=== PATIENT | female | born 1945 | race African-American/Black ===

== ENCOUNTER 2017-02-12 09:35 | Inpatient (IN) | payer MEDICARE, BC, OTHER ==
--- NOTE | ~2017-02-12 | OR ---
Unit #: [id number] #: [id number] Patient: MELLY RICE [id number] [address] [place], [place] [address] [id number] I MR#: [id number] NAME: MELLY RICE ROOM: 229 Date of Procedure: 02/21/2017 Admission Date: 02/13/2017 Surgeon: Phu England Jr., M.D. : 1945 Attending Physician: Shruthi Christensen M.D. Primary Care Physician: Benji Becker M.D. OPERATIVE REPORT INDICATIONS FOR PROCEDURE The patient is a 71-year-old black female with multiple medical problems including chronic renal failure, who has developed calciphylaxis, wounds of both thighs. She was previously debrided and needs further debridement and said she was on Plavix. Further debridements have been held until now. Her Plavix has been held since the admission. She is brought to the operating room at this time for extensive debridement of both thighs. PREOPERATIVE DIAGNOSIS Wounds of both thighs related to calciphylaxis. POSTOPERATIVE DIAGNOSES Wounds of both thighs related to calciphylaxis, noting large wounds with extension of the calciphylaxis well beyond the edge of the open wound on the right side from before. ANESTHESIA General with LMA. PROCEDURE PERFORMED Sharp excisional debridement of both wounds of the right thigh as well as a large wound of the left thigh with a #10 blade scalpel down to the deeper subcutaneous tissue and the fascia of the muscle. DESCRIPTION OF PROCEDURE The patient was positioned in the supine position with the right leg rotated internally and circumferential incisions with #10 blade scalpel made through the skin beyond the area of calciphylaxis down to the deeper subcutaneous tissue and down towards the fascia of the muscle. After all the necrotic tissue was removed from both wounds, some necrotic fat was removed with a curette and curettaged, and after bleeding was stopped with Bovie cautery, the wounds were packed with saline moist dry dressings. The patient was then rotated with the left side up and incision was made around the necrotic tissue on the left thigh laterally with #10 blade scalpel and sharp excisional debridement was performed down to the fascia of the muscle. After all necrotic tissue was removed, some additional necrotic fat was curettaged and removed, and once all tissue was removed back to viable areas, hemostasis was achieved with Bovie cautery. The wound was irrigated and then packed open with saline moist dry dressings. Sterile dressings were applied externally. Estimated blood loss for both surgeries less than 100 mL. The patient received less than 1000 mL crystalloid solution during the procedure. Sponges and instrument counts Unit #: [id number] #: [id number] Patient: MELLY RICE were correct x3. No drains were used. No complications. The patient was taken to recovery room with stable vital signs in satisfactory condition. Dictated by... Phu England Jr. MJose A. ALFONZO/pierre TD: 02/21/2017 23:46 JOB #: [id number] OPERATIVE REPORT Page 1 of 1 X Phu England MD X PROCEDURE OPERATIVE NOTE
--- NOTE | ~2017-02-12 | DS ---
Unit #: [id number] #: [id number] Patient: MELLY RICE [id number] [address] [place], [place] [address] [id number] I MR#: [id number] NAME: MELLY RICE. ROOM: 229 Age: 71 Sex: F Admission Date: 02/13/2017 : 1945 Discharge Date: 02/24/2017 Attending Physician: Shruthi Christensen M.D. Primary Care Physician: Benji Becker M.D. DISCHARGE SUMMARY ADDENDUM HOSPITAL COURSE (CONTINUED) Patient underwent sharp excisional debridement of both wounds of the right thigh and large wound of the left thigh down to the deeper subcutaneous tissue and fascia. Postoperatively, she has done very well. I will note, the pathology from this procedure revealed focal ulceration but no blood vessel wall calcifications were noted indicating this may not be consistent with calcification. At this point, the wounds have not yet begun to granulate. The plan is for patient to achieve approximately 20-30% granulation tissue and at that point will discuss wound V.A.C. application at that time. Patient has otherwise remained on hemodialysis without complication. She will be discharged back to her nursing facility today. DISCHARGE CONDITION Stable. DISCHARGE STATUS [facility] DISCHARGE MEDICATIONS 1. Zofran oral disintegrating tablet 4 mg p.o. t.i.d. p.r.n. for nausea or vomiting. 2. Zyvox 600 mg p.o. b.i.d. to stop after dose on February 27, 2017. 3. Gabapentin 300 mg at bedtime. 4. Amitriptyline 25 mg at bedtime. 5. Desyrel 25 mg p.o. q.6 hours p.r.n. for anxiety. 6. Lidoderm patch 5% applied topically daily for 12 hours and then removed for 12 hours. 7. ProMod 60 mg p.o. b.i.d. 8. Metoprolol succinate 100 mg daily. 9. Bisacodyl 5 mg p.o. p.r.n. if no bowel movement in two days. 10. Dulcolax 10 mg FL p.r.n. if no bowel movement in four days. 11. Colace 100 mg b.i.d. 12. Docusate plus benzocaine enema 1 suppository FL p.r.n. if no bowel movement in four days. 13. MiraLax 17 grams p.o. daily. 14. Bumex 1 mg b.i.d. 15. Procrit weekly with dialysis. 16. Lipitor 20 mg at bedtime. 17. Clonidine 0.2 mg b.i.d. 18. Hydralazine 100 mg b.i.d. Unit #: [id number] #: [id number] Patient: MELLY RICE 19. Cozaar 50 mg twice daily. 20. Flagyl 500 mg p.o. t.i.d. to stop after dose on February 28, 2017. 21. Famotidine 20 mg daily. 22. Aspirin 81 mg daily. 23. [place] 5/325 at 1 tablet p.o. q.8 hours. 24. Plavix 75 mg daily. 25. Vitamin D3 at 5000 units p.o. daily. 26. Vitamin B12 at 1000 mcg p.o. daily. 27. Dakin's quarter strength solution for wound care as outlined below. DISCHARGE INSTRUCTIONS 1. Patient was instructed to follow a regular diet. 2. She can increase her activity as tolerated, but again, she is essentially immobile at baseline. 3. In regards to wound care, patient should have Dakin's quarter strength solution apply wet-to-dry dressings to all wounds on thighs bilaterally q.8 hours. 4. Patient will continue hemodialysis as previously scheduled on Friday/Friday/Friday. FOLLOWUP Patient will follow up with Dr. England in two weeks. He will reevaluate the wounds in his office to determine whether wound V.A.C. is needed. Time spent on discharge 33 minutes. Dictated by... Reema Babcock/stefanie TD: 02/24/2017 16:05 JOB #: [id number] DISCHARGE SUMMARY Page 1 of 1 X Shruthi Christensen MD X DISCHARGE SUMMARY
--- NOTE | ~2017-02-12 | CR72 ---
[facility] A Service of [facility] RADIOLOGY TEXT RESULTS PATIENT: MELLY RICE LOCATION: [facility] : [birth year] UNIT #: [id number] AGE: [address]: Moisés Titus MD SEX: F ORDER DR: [id number] [facility] [address] [place], [place] [address] [id number] MR#: [id number] Acc #: [id number] NAME: MELLY RICE : 1945 SEX: F STUDY DATE/TIME: 02/12/2017 10:44 UNIT: [facility] ROOM: STUDY DESCRIPTION: CR Chest Single View Portable Attending Physician: Moisés Titus M.D. Ordering Physician: Moisés Titus M.D. Primary Care Physician: Benji Becker M.D. MEDICAL IMAGING REPORT This report is preliminary unless electronic signature is present EXAM Chest portable 02/12/2017 10:44 hours HISTORY A 71-year-old with history of diabetes and hypoglycemia today. Lethargy and altered mental status for 2 days. History of hypertension. COMPARISON 11/29/2016 FINDINGS Portable upright chest demonstrates low lung volumes. The cardiac, mediastinal and hilar contours are normal. The lungs are clear and there are no effusions. IMPRESSION Low lung volumes. No acute cardiopulmonary findings. Dictated by... Becky Riggs M.D. THIS IS AN ELECTRONICALLY VERIFIED REPORT Becky Riggs M.D. at 02/12/2017 12:50 PM Pawan TD: 02/12/2017 11:28 JOB #: [id number] MEDICAL IMAGING REPORT Page 1 of 1 COPY
--- NOTE | ~2017-02-12 | CO ---
Unit #: [id number] #: [id number] Patient: MELLY RICE [id number] [place] [address] [facility]. [place], [place] [address] [id number] I MR#: [id number] NAME: MELLY RICE ROOM: 55 Age: 71 Sex: F Admission Date: 02/13/2017 : 1945 Attending Physician: Shruthi Christensen M.D. Primary Care Physician: Benji Becker M.D. Consultation Date: 02/14/2017 CONSULTATION REPORT HISTORY OF PRESENT ILLNESS The patient is a 71-year-old black female brought in from the [facility] with severe hypoglycemia, with a blood sugar of 20. She is a known diabetic and has been on multiple medications. She has also had a previous CVA with multiple medical problems in the past. She was noted to have multiple wounds in both thighs, mostly on the right thigh, with evidence of calciphylaxis. She also has some superficial early skin changes on the acral area, but no full-thickness extension of this. We were asked to see her wounds and make recommendations. She has evidence of septicemia with gram positive cocci in her bloodstream. The rest of her past history has been reviewed and is on the chart. She is unable to give any history. PHYSICAL EXAMINATION VITALS: Afebrile. Vital signs are normal. HEENT: Not remarkable. NECK: Supple. CHEST: There is equal bilateral expansion with bilateral equal breath sounds. Breath sounds are diminished bilaterally. HEART: Regular rhythm. ABDOMEN: Soft, nontender and benign. EXTREMITIES: There are multiple black eschars mostly on the right lateral and right anterior thigh, with full-thickness loss of tissue, including smaller one on the left thigh laterally. There is only minimal cellulitis present. There is no evidence of any drainage. These are all dry. On the sacral area there is some early breakdown of the skin, but not full thickness. This would be a stage 1-2 area. There is no cellulitis and no drainage. NEUROLOGIC: The patient is poorly responsive, but does respond. ASSESSMENT The patient has multiple wounds of both thighs and of the sacral area that are early. She has evidence of calciphylaxis. PLAN Debride these wounds under general anesthesia. Dictated by... Phu England Jr., M.D. JMB/gz Unit #: [id number] #: [id number] Patient: MELLY RICE TD: 02/14/2017 12:19 JOB #: [id number] CC: Phu England Jr., M.D. CONSULTATION REPORT Page 1 of 1 X Phu England MD X CONSULTATION REPORT
--- NOTE | ~2017-02-12 | EKG ---
PATIENT: MELLY RICE UNIT #: [id number] Ventricular Rate: 77 BPM Atrial Rate: 77 BPM P-R Interval: 176 ms QRS Duration: 80 ms Q-T Interval: 424 ms QTC Calculation(Bezet): 479 ms P [place]: 41 degrees Calculated R [place]: -9 degrees Calculated T [place]: 104 degrees Diagnosis Line: Normal sinus rhythm Diagnosis Line: Inferior infarct , age undetermined Diagnosis Line: Abnormal ECG Diagnosis Line: When compared with ECG of 12-MAR-2016 11:26, Diagnosis Line: Inferior infarct is now Present Diagnosis Line: T wave inversion no longer evident in Lateral Diagnosis Line: leads Diagnosis Line: Confirmed by JERE SHEEHAN MD ([id number]) on Diagnosis Line: 02/14/2017 3:40:02 PM INTERPRETING MD: EMELI
--- NOTE | ~2017-02-12 | CO ---
Unit #: [id number] #: [id number] Patient: KIARA SUAZO [id number] [address] [place] [id number] I MR#: [id number] NAME: KIARA SUAZO ROOM: 55 Age: 71 Sex: F Admission Date: 02/13/2017 : 1945 Attending Physician: Shruthi Christensen M.D. Primary Care Physician: Benji Becker M.D. Consultation Date: 02/13/2017 CONSULTATION REPORT REASON FOR CONSULT End-stage renal disease. Thank you very much for asking me to see this patient again. HISTORY OF PRESENT ILLNESS Ms. Kiara Suazo is a 71-year-old -Greek female with a history of ESRD now on hemodialysis at [facility] dialysis unit, I believe, every Friday, and Friday at [facility], who lives in [facility] now where she has a long history of diabetes mellitus, hypertension, who presented to the hospital here yesterday apparently being severely hypoglycemic and confused. She was admitted for this. She currently is arousible and awake but she is still confused. She could not tell me which hospital she was in or which year. She denies though any chest pain, chest heaviness, any shortness of breath, any nausea, vomiting or abdominal pain. PAST MEDICAL HISTORY She had a history of hypertensive emergency with an acute CVA in March of 2016. She has a history now of ESRD. She has a history of hypertension, history of insulin-dependent diabetes mellitus. She has a history, looks to be status post fistula in her right arm. ALLERGIES Doxycycline. MEDICATIONS CURRENTLY 1. Toprol XL 50 mg a day. 2. Vancomycin. 3. Catapres 0.1 mg q.h.s. 4. Lipitor 20 mg a day. 5. Neurontin 30 mg q.h.s. 6. Amitriptyline 20 mg q.h.s. 7. Losartan 50 mg a day. 8. Bumex 1 mg twice a day. 9. Procrit with dialysis. 10. Zofran p.r.n. 11. KCl 20 mEq daily. 12. Aspirin 81 mg daily. 13. Plavix 75 mg a day. 14. Pepcid 20 mg a day. REVIEW OF SYSTEMS As mentioned in the HPI. Again, she is confused but she denies any Unit #: [id number] #: [id number] Patient: KIARA SUAZO headaches, visual problems. She denies any cough. She denies any shortness of breath. No chest pain. No abdominal pain. No nausea or vomiting. SOCIAL HISTORY She again lives in rehab/custodial, [facility]. She was a previous smoker, none in 21 years. No alcohol now. FAMILY HISTORY Noncontributory. PHYSICAL EXAMINATION GENERAL APPEARANCE: She is alert but confused currently. VITAL SIGNS: T-Max 100.0. Pulse 77 to 111. Blood pressure 129 to 156/50 to 80. HEENT: Her pupils are equal, round and reactive to light. Extraocular muscles are intact. Hearing appears to be fairly normal. Mouth is clear. No erythema. No exudate. NECK: Supple. No adenopathy. CARDIAC: She appears to have a regular rhythm without a rub. No S3, S4. LUNGS: Clear bilaterally. ABDOMEN: Bowel sounds positive, nontender, soft. No mass felt. No hepatomegaly noted. EXTREMITIES: She has no lower extremity swelling. She has a fistula functioning in her right upper arm with a good thrill. NEUROLOGIC: Again, she is able to move all extremities, although seems to be weaker on her right side than her left and some contraction of her right hand but, again, she is alert but confused. GENITOURINARY: Deferred. DIAGNOSTIC STUDIES LABORATORY: Glucose 109, BUN 30, creatinine 3.6, potassium 4, CO2 33, calcium 8.5, albumin 1.8, alkaline phosphatase 172. Hemoglobin A1C 5.1. Lactic acid 1.3, increased up to 1.7. INR 1.3. Hemoglobin 8.8, white count 9,100 down from 13,600, platelets 469,000. Urinalysis showed 0 to 2 RBC, 0 to 2 WBC. Blood cultures are growing 2/2 gram-positive cocci. ASSESSMENT AND PLAN 1. End-stage renal disease. We will plan on dialyzing her today. We will continue Friday, , Friday dialysis. We will adjust her potassium and discontinue her oral potassium for now. We will follow while she is here. 2. 2/2 gram-positive cocci in blood. The patient was started on vancomycin. Await results. Echo was ordered by primary. 3. Diabetes mellitus with hypoglycemia. 4. History of hypertension. Blood pressure overall trends seem to be stable. Continue current medications. 5. Anemia. Hemoglobin is improved. We will give Epo with dialysis and we will follow. Dictated by.Hernando Marcelo M.D. EZEKIEL/jossue TD: 02/14/2017 07:43 Unit #: [id number] #: [id number] Patient: KIARA SUAZO JOB #: [id number] CONSULTATION REPORT Page 1 of 1 X Maribel Marcelo MD X CONSULTATION REPORT
--- NOTE | ~2017-02-12 | HP ---
Unit #: [id number] #: [id number] Patient: MELLY RICE [id number] [address] [place], [place] [address] [id number] MR#: [id number] NAME: MELLY RICE. ROOM: Age: 71 Sex: F Admission Date: 02/12/2017 : 1945 Attending Physician: Moisés Titus M.D. Primary Care Physician: Benji Becker M.D. HISTORY AND PHYSICAL CHIEF COMPLAINT Hypoglycemia. HISTORY OF PRESENT ILLNESS The patient is a 71-year-old female brought to the emergency room from [facility] with hypoglycemia. The patient was found to have hypoglycemia down to 20. The patient received glucagon and oral glucose, and the glucose is up to 65. The patient stated she has been taking insulin at the assisted; however, from the medical records from the assisted, there is no insulin and no antidiabetic medications. The patient also complained of black colored wounds on the legs mainly on the right thigh. The patient denied any fever, chills, nausea, or vomiting. The patient has a history of end-stage renal disease and has been on dialysis for the last six months. The patient is being admitted for the above reasons. PAST MEDICAL HISTORY 1. Diabetes. 2. Hypertension. 3. Hyperlipidemia. 4. Lymphedema. PAST SURGICAL HISTORY 1. Bilateral hammertoe surgery. 2. Hysterectomy. 3. Tonsillectomy. 4. Rods in her right thumb. ALLERGIES Doxycycline. HOME MEDICATIONS 1. Hydrocodone. 2. Potassium chloride. 3. Metoprolol. 4. Aspirin. 5. Vitamin D3. SOCIAL HISTORY No history of tobacco use, alcohol, or any illicit drug abuse. Resident of [facility]. REVIEW OF SYSTEMS A 14-point review of systems was performed and only pertinent positive Unit #: [id number] #: [id number] Patient: MELLY RICE findings are described above. The remaining are negative. PHYSICAL EXAMINATION GENERAL: Patient is lying in bed not in acute distress. VITAL SIGNS: Temperature is 94.5, pulse 78, respiratory rate 20, blood pressure 119/88, and saturating 97% on room air. HEENT: Head atraumatic, normocephalic. Pupils equal, round, and reactive to light and accommodation. Dry mucous membranes. NECK: Supple. LUNGS: Decreased air entry at the bases. HEART: Regular rate and rhythm. ABDOMEN: Soft. Positive bowel sounds. EXTREMITIES: Patient has a fistula in the right upper extremity and calciphylaxis wounds on the right thigh. NEUROLOGIC: Alert, awake, and oriented. DIAGNOSTIC STUDIES LABORATORY: Sugar was down to 39 at the time of admission. WBC 13.6, hemoglobin 8, hematocrit 26.6, and platelets 443,000. INR is 1.3. Sodium 135, potassium 3.9, chloride 95, bicarb 33, glucose 306, BUN 25, creatinine 2.9, AST 19, ALT 8, alkaline phosphatase 172, and albumin 1.8. Troponin less than 0.08. Lactic acid 1.3 then 1.7. Urinalysis shows 1+ leukocyte esterase. IMAGING: Chest x-ray shows low lung volumes and no acute cardiopulmonary findings. ASSESSMENT 1. Hypoglycemia. 2. Hypothermia. 3. End-stage renal disease, on hemodialysis. PLAN Admit the patient to observation with telemetry. Continue with Cyndi Hugger for warming blankets. Hold the insulin. Patient will be on sliding scale low dose. Renal consult for dialysis. Repeat the labs again in the morning. Check hemoglobin A1c. Dictated by Reema Marte TD: 02/12/2017 16:34 JOB #: [id number] HISTORY AND PHYSICAL Page 1 of 1 X LIUMDILA JONES MD X HISTORY AND PHYSICAL
--- NOTE | ~2017-02-12 | OR ---
Unit #: [id number] #: [id number] Patient: MELLY RICE [id number] [address] [place], [place] [address] [id number] I MR#: [id number] NAME: MELLY RICE ROOM: 557 Date of Procedure: 02/14/2017 Admission Date: 02/13/2017 Surgeon: Phu England Jr., M.D. : 1945 Attending Physician: Shruthi Christensen M.D. Primary Care Physician: Benji Becker M.D. OPERATIVE REPORT REVISED REPORT INDICATIONS FOR PROCEDURE The patient is a 71-year-old black female from the care home, who has multiple eschars on both thighs from calciphylaxis. She is on Lasix and aspirin, but it was felt that attempts at debriding these should be taken; therefore, she is brought to the operating room at this time for debridement of the wounds of both thighs. PREOPERATIVE DIAGNOSIS Multiple necrotic wounds of both thighs. POSTOPERATIVE DIAGNOSIS Multiple necrotic wounds of both thighs. ANESTHESIA General with LMA. PROCEDURE PERFORMED Sharp excisional debridement using a #10 blade scalpel down to the deeper subcutaneous tissue in the right thigh for 2 different wounds. DESCRIPTION OF PROCEDURE The patient was positioned in the supine position. After being anesthetized, had the right leg rotated internally and prepped and draped in routine fashion for debridement of her 2 wounds of this thigh. These were the 2 larger wounds. Elliptical incisions were made around the wounds down to the deeper subcutaneous tissue and there was a moderate amount of bleeding. After the eschars were removed with a #10 blade scalpel, they were discarded. Hemostasis was achieved with Bovie cautery. It was felt that in view of the bleeding and the fact the patient was on Plavix and aspirin that further debridement will be done after the Plavix and aspirin have been held for approximately 4 or 5 days. After hemostasis was achieved with Bovie cautery, the wound was packed with saline moist dry dressings. The wounds both were packed with saline moist dry dressings. Sterile compressive dressing was applied externally. Estimated blood loss less than 100 mL. The patient received less than 1000 mL crystalloid solution during the procedure. Sponges and instruments counts were correct x3. No drains were used. No complications. The patient was taken to the recovery room with stable vital signs in a satisfactory condition. Unit #: [id number] #: [id number] Patient: MELLY RICE Dictated by... Phu England Jr., MMark MEJÍA/pierre TD: 02/15/2017 02:37 JOB #: [id number] OPERATIVE REPORT Page 1 of 1 X Phu England MD X PROCEDURE OPERATIVE NOTE
--- NOTE | ~2017-02-12 | TOC ---
Unit #: [id number] #: [id number] Patient: MELLY SUAZO [id number] [address] [address] [id number] I MR#: [id number] NAME: MELLY SUAZO. ROOM: 229 Age: 71 Sex: F Admission Date: 02/13/2017 : 1945 Attending Physician: Shruthi Christensen M.D. Primary Care Physician: Benji Becker M.D. TRANSFER OF CARE SUMMARY PRINCIPAL DIAGNOSES 1. Sepsis secondary to Methicillin resistance coag negative Staph bacteremia. 2. 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 3. Stage 2 pressure ulcer of the coccyx present upon admission. 4. Hypoglycemia, resolved. 5. Hypothermia, resolved. 6. End stage renal disease maintained on hemodialysis. 7. Anemia multifactorial including end stage renal disease and acute blood loss. 8. Clostridium difficile colitis. 9. Hypertension, uncontrolled. 10. Chronic immobility. 11. Mild dementia, likely vascular. 12. History of diabetes without any evidence of diabetes currently. 13. Lymphedema. 14. Severe protein malnutrition. CONSULTANTS Dr. Phillips of nephrology and Dr. England, general surgery. PROCEDURES 1. Sharp excisional debridement down to deeper subcutaneous tissue of right thigh on 02/14/2017. 2. Debridement of right and left thigh wounds pending on 02/21/2017. 3. 2-Dimensional echocardiogram on 02/13/2017 with ejection fraction of 55% to 60%. Mild left ventricular hypertrophy. 4. Mild septal asymmetric hypertrophy, normal right ventricular systolic pressure. 5. Chest x-ray on 01/30/2017 with low lung volumes. CLINICAL HISTORY AND HOSPITAL COURSE Ms. Suazo is a nice 71-year-old -[place] female who presents to the emergency department initially due to reports of hypoglycemia at her nursing facility. Patient was also found to have necrotic wounds on the right and left thigh and for these reasons she was subsequently admitted. In regards to patient's hypoglycemia, she was placed on dextrose containing IV fluids for a short period and sugar is stabilized. Fluids were discontinued and patient has had stable oral intake throughout hospitalization. Sugars are generally running 82 to the 140 range. Her hemoglobin A1c was found to be low at 5.1. She reportedly does have a history of diabetes but this is resolved at this time and no diabetic medications have been initiated. Unit #: [id number] #: [id number] Patient: MELLY SUAZO In regards to patient's necrotics wounds, LSA was consulted. Patient underwent debridement of the right thigh would last week but unfortunately had a significant amount of bleeding and further debridement withhold at this time. Plavix was discontinued and patient will undergo further debridement today. These wounds appears most consistent with calciphylaxis. I will note that review of records from her dialysis unit does not reveal any of the risk factors for calciphylaxis but again these appear most consistent with this. I have discussed with patient's family that if indeed these are wounds from calciphylaxis, it may very difficult to heal in the future and they are aware. Upon presentation, the patient was also found to have coag negative Staph bacteremia, which was methicillin resistant. She was initially placed on vancomycin and has been changed to Zyvox and will complete a two week course of antibiotics. Bacteremia has resolved. Patient has been maintained on hemodialysis per renal. She was also found to have diarrhea and subsequently tested positive for C. diff colitis. Her diarrhea has resolved and again she will complete a two week course of Flagyl. I anticipate hopefully discharge back to nursing facility early next week if debridement is without complications. Further hospital course to be dictated as an addendum. Dictated by... Shruthi Christensen M.D. VERO/patel TD: 02/21/2017 12:14 JOB #: [id number] TRANSFER OF CARE SUMMARY Page 1 of 1 X Shruthi Christensen MD X TRANSFER OF CARE SUMMARY
[~2017-02-12 09:35] MED LIST: BAYER ASPIRIN325 M1 PO; CATAPRES0.1 MG PO; CLOPIDOGREL BIS75 MG PO; HYDRALAZINE HC100 MG PO; LANTUS100 U/ML SUBQ; LIPITOR40 MG PO; LOSARTAN POTAS100 MG PO; NORVASC10 MG PO; NOVOLOG100 U/ML; OMEPRAZOLE40 M1 PO; PEPCID AC20 M2 PO; TOPROL XL100 MG PO; TRIAMTERENE-HCT1 TA6 PO; ZOFRAN ODT4 MG PO
[2017-02-12 10:28] LABS: BASOPHIL# 0.1 X10e3 (0-0.3); BASOPHIL% 0.4 % (0-2.5); DIFF IND NO; HEMATOCRIT 26.6 % (35.0-45.0); LYMPHOCYTE# 1.2 X10e3 (1.0-3.5); LYMPHOCYTE% 9.1 % (17.0-45.0); MEAN CELL VOLUME 83.1 FL (83-96); MEAN CORPUSCULAR HGB CONC 30.1 g/dL (30-36); MEAN PLATELET VOLUME 8.3 FL (6.5-11.5); MONOCYTE% 7.6 % (3.0-12.0); NEUTROPHIL# 11.2 X10e3 (1.5-7.1); NEUTROPHIL% 82.9 % (40-75); PLATELET COUNT 443 X10e3 (140-420); RED CELL DISTRIBUTION WIDTH 20.5 % (11.0-15.5); WHITE BLOOD COUNT 13.6 X10e3 (4.0-10.5)
[2017-02-12 10:37] LABS: INR 1.3; PARTIAL THROMBOPLASTIN TIME 30.3 SECONDS (23.5-31.3); PROTHROMBIN TIME (PATIENT) 13.3 SECONDS (9.6-11.5)
[2017-02-12 10:55] LABS: ALBUMIN SERUM 1.8 g/dL (3.5-5.0); BILIRUBIN, DIRECT 0.1 mg/dL (0.0-0.2); BILIRUBIN,INDIRECT 0.3 mg/dL (0.0-0.9); BILIRUBIN,TOTAL 0.4 mg/dL (0.2-2.0); BUN/CREATININE RATIO 8.62; CALCIUM SERUM 8.2 mg/dL (8.4-10.2); CREATININE SERUM 2.9 mg/dL (0.6-1.4); GLOM FILT RATE Estimated 18.3 mL/min (>60); POTASSIUM 3.9 mmol/L (3.5-5.1); PROTEIN TOTAL SERUM 6.2 g/dL (6.0-8.3)
[2017-02-12 11:27] LABS: POC - CKMB <1.0 ng/mL (0.0-7.9); POC - TROPONIN <0.05 ng/mL (<=0.05)
[2017-02-12 12:04] LABS: URINE SOURCE CLEAN CATCH
[2017-02-12 12:18] LABS: URINE APPEARANCE CLOUDY; URINE BACTERIA AUWI NEG (NEGATIVE); URINE BLOOD NEG (NEG); URINE COLOR DK YELLOW; URINE GLUCOSE NEG (NEG); URINE KETONE NEG (NEG); URINE LEUKOCYTE ESTERASE 1+ (NEG); URINE NITRATE NEG (NEG); URINE PROTEIN 1+ (NEG); URINE SPECIFIC GRAVITY 1.023 (1.003-1.035); URINE SQUAMOUS EPITHELIAL CELL MOD /[HPF]; UWBCS1 AUWI 0-2 (0-5)
[2017-02-12 12:27] LABS: URINE BILIRUBIN NEG (NEG)
[2017-02-12 12:28] LABS: CULTURE INDICATED? NO; U HYALINE CASTS AUWI 0-2 /[LPF]; URINE AMORPHOUS SEDIMENT AMORP URATES
[2017-02-12 12:37] LABS: URBCS1 AUWI 0-2 /[HPF] (0-2)
[2017-02-12] MEDS ORDERED: POTASSIUM CHLO20 ME1 PO (15:02)
[2017-02-12] MEDS ORDERED: HYDROCODON-ACE1 EAC7 PO (15:02)
[2017-02-12] MEDS ORDERED: ASPIRIN81 M2 PO (15:03)
[2017-02-12] MEDS ORDERED: VITAMIN D35000 UNI1 PO (15:03)
[2017-02-12] MEDS ORDERED: METOPROLOL SUC100 MG PO (15:03)
[2017-02-12] MEDS ORDERED: VIT B-12 PO (15:04)
[2017-02-12] MEDS ORDERED: LEVEMIR SUBQ (16:18)
[2017-02-12] MEDS ORDERED: NOVOLOG100 UNITS/ (16:18)
[2017-02-12] MEDS ORDERED: CLOPIDOGREL75 MG PO (16:20)
[2017-02-12] MEDS ORDERED: ACID CONTROLLER20 MG PO (16:20)
[2017-02-12] MEDS ORDERED: MIRALAX119 GM PO (16:22)
[2017-02-12] MEDS ORDERED: LIDOCAINE1 EACH TOP (16:22)
[2017-02-12] MEDS ORDERED: PROCRIT2000 UNIT/ (16:23)
[2017-02-12] MEDS ORDERED: DOC-Q-LACE100 MG PO (16:23)
[2017-02-12] MEDS ORDERED: PROMOD946 ML PO (16:23)
[2017-02-12] MEDS ORDERED: BUMEX1 MG PO (16:23)
[2017-02-12] MEDS ORDERED: LIPITOR20 MG PO (16:24)
[2017-02-12] MEDS ORDERED: CATAPRES0.1 MG PO (16:24)
[2017-02-12] MEDS ORDERED: GABAPENTIN300 M2 PO (16:24)
[2017-02-12] MEDS ORDERED: LOSARTAN POTASS50 MG PO (16:25)
[2017-02-12] MEDS ORDERED: ZOFRAN ODT4 M1 PO (16:25)
[2017-02-12] MEDS ORDERED: AMITRIPTYLINE H25 MG PO (16:25)
[2017-02-12] MEDS ORDERED: CORRECTOL5 M2 PO (16:26)
[2017-02-12] MEDS ORDERED: DULCOLAX10 MG PR (16:27)
[2017-02-12] MEDS ORDERED: DESYREL50 MG PO (16:28)
[2017-02-12] MEDS ORDERED: ENEMEEZ PLUS MIN5 ML PR (16:28)
[2017-02-13 05:22] LABS: BASOPHIL% 0.4 % (0-2.5); EOSINOPHIL% 0.4 % (0.0-7.0); HEMATOCRIT 28.7 % (35.0-45.0); HEMOGLOBIN 8.8 gm/dL (12.0-16.0); LYMPHOCYTE# 2.6 X10e3 (1.0-3.5); LYMPHOCYTE% 28.3 % (17.0-45.0); MEAN CELL VOLUME 82.7 FL (83-96); MEAN CORPUSCULAR HEMOGLOBIN 25.3 PG (28-34); MEAN CORPUSCULAR HGB CONC 30.5 g/dL (30-36); MEAN PLATELET VOLUME 8.1 FL (6.5-11.5); MONOCYTE# 1.2 X10e3 (0-1.0); MONOCYTE% 13.5 % (3.0-12.0); NEUTROPHIL# 5.2 X10e3 (1.5-7.1); NEUTROPHIL% 57.4 % (40-75); PLATELET COUNT 469 X10e3 (140-420); RED BLOOD COUNT 3.47 X10e (3.90-5.30); RED CELL DISTRIBUTION WIDTH 20.6 % (11.0-15.5); WHITE BLOOD COUNT 9.1 X10e3 (4.0-10.5)
[2017-02-13 05:37] LABS: DIFF IND NO
[2017-02-13 06:27] LABS: BUN/CREATININE RATIO 8.33; CALCIUM SERUM 8.5 mg/dL (8.4-10.2); CREATININE SERUM 3.6 mg/dL (0.6-1.4); GLOM FILT RATE Estimated 14.1 mL/min (>60)
[2017-02-14 05:07] LABS: BASOPHIL% 0.6 % (0-2.5); EOSINOPHIL# 0.1 X10e3 (0-0.7); EOSINOPHIL% 0.7 % (0.0-7.0); HEMATOCRIT 22.3 % (35.0-45.0); LYMPHOCYTE# 2.4 X10e3 (1.0-3.5); LYMPHOCYTE% 29.6 % (17.0-45.0); MEAN CELL VOLUME 81.8 FL (83-96); MEAN CORPUSCULAR HEMOGLOBIN 25.6 PG (28-34); MEAN CORPUSCULAR HGB CONC 31.3 g/dL (30-36); MEAN PLATELET VOLUME 8.1 FL (6.5-11.5); MONOCYTE# 1.1 X10e3 (0-1.0); MONOCYTE% 14.2 % (3.0-12.0); NEUTROPHIL# 4.4 X10e3 (1.5-7.1); NEUTROPHIL% 54.9 % (40-75); PLATELET COUNT 404 X10e3 (140-420); RED BLOOD COUNT 2.73 X10e (3.90-5.30); RED CELL DISTRIBUTION WIDTH 20.5 % (11.0-15.5)
[2017-02-14 05:14] LABS: DIFF IND YES
[2017-02-14 06:20] LABS: PLATELET ESTIMATE NORMAL (NORMAL)
[2017-02-14 06:21] LABS: ANISOCYTOSIS MOD; POLYCHROMASIA MOD; TARGET CELLS MOD
[2017-02-14 06:43] LABS: BUN/CREATININE RATIO 7.5; CALCIUM SERUM 7.9 mg/dL (8.4-10.2); GLOM FILT RATE Estimated 28.6 mL/min (>60); POTASSIUM 3.7 mmol/L (3.5-5.1)
[2017-02-14 07:32] LABS: HEMOGLOBIN 7.4 gm/dL (12.0-16.0)
[2017-02-14 12:21] LABS: IRON SERUM 10 ug/dL (28-170)
[2017-02-14 12:24] LABS: TRANSFERRIN <70 mg/dL (192-382)
[2017-02-15 05:52] LABS: HEMATOCRIT 21.9 % (35.0-45.0); MEAN CELL VOLUME 83.7 FL (83-96); MEAN CORPUSCULAR HEMOGLOBIN 25.9 PG (28-34); MEAN CORPUSCULAR HGB CONC 30.9 g/dL (30-36); MEAN PLATELET VOLUME 8.1 FL (6.5-11.5); RED BLOOD COUNT 2.62 X10e (3.90-5.30); RED CELL DISTRIBUTION WIDTH 21.1 % (11.0-15.5); WHITE BLOOD COUNT 7.6 X10e3 (4.0-10.5)
[2017-02-15 06:11] LABS: BUN/CREATININE RATIO 7.77; CALCIUM SERUM 7.7 mg/dL (8.4-10.2); CREATININE SERUM 2.7 mg/dL (0.6-1.4); GLOM FILT RATE Estimated 19.9 mL/min (>60); PHOSPHOROUS 2.5 mg/dL (2.5-4.6); POTASSIUM 3.3 mmol/L (3.5-5.1)
[2017-02-15 06:17] LABS: HEMOGLOBIN 6.8 gm/dL (12.0-16.0)
[2017-02-16 05:37] LABS: HEMATOCRIT 33.6 % (35.0-45.0); MEAN CORPUSCULAR HEMOGLOBIN 26.4 PG (28-34); MEAN CORPUSCULAR HGB CONC 31.1 g/dL (30-36); MEAN PLATELET VOLUME 7.7 FL (6.5-11.5); RED BLOOD COUNT 3.96 X10e (3.90-5.30); RED CELL DISTRIBUTION WIDTH 19.4 % (11.0-15.5); WHITE BLOOD COUNT 9.8 X10e3 (4.0-10.5)
[2017-02-16 05:42] LABS: HEMOGLOBIN 10.5 gm/dL (12.0-16.0)
[2017-02-16 06:33] LABS: BUN/CREATININE RATIO 8.43; CALCIUM SERUM 8.5 mg/dL (8.4-10.2); CREATININE SERUM 3.2 mg/dL (0.6-1.4); GLOM FILT RATE Estimated 16.2 mL/min (>60); POTASSIUM 3.8 mmol/L (3.5-5.1)
[2017-02-17 08:01] LABS: HEMATOCRIT 33.9 % (35.0-45.0); HEMOGLOBIN 10.7 gm/dL (12.0-16.0); MEAN CELL VOLUME 85.5 FL (83-96); MEAN CORPUSCULAR HEMOGLOBIN 26.9 PG (28-34); MEAN CORPUSCULAR HGB CONC 31.5 g/dL (30-36); MEAN PLATELET VOLUME 8.1 FL (6.5-11.5); RED BLOOD COUNT 3.96 X10e (3.90-5.30); RED CELL DISTRIBUTION WIDTH 20.1 % (11.0-15.5)
[2017-02-17 08:20] LABS: BUN/CREATININE RATIO 6.8; CALCIUM SERUM 8.5 mg/dL (8.4-10.2); CREATININE SERUM 2.5 mg/dL (0.6-1.4); GLOM FILT RATE Estimated 21.8 mL/min (>60); POTASSIUM 4.4 mmol/L (3.5-5.1)
[2017-02-18 06:56] LABS: HEMATOCRIT 31.2 % (35.0-45.0); HEMOGLOBIN 9.7 gm/dL (12.0-16.0); MEAN CELL VOLUME 86.1 FL (83-96); MEAN CORPUSCULAR HEMOGLOBIN 26.6 PG (28-34); MEAN CORPUSCULAR HGB CONC 30.9 g/dL (30-36); RED BLOOD COUNT 3.63 X10e (3.90-5.30); RED CELL DISTRIBUTION WIDTH 20.9 % (11.0-15.5); WHITE BLOOD COUNT 11.3 X10e3 (4.0-10.5)
[2017-02-18 07:34] LABS: BUN/CREATININE RATIO 7.33; GLOM FILT RATE Estimated 17.5 mL/min (>60); POTASSIUM 4.1 mmol/L (3.5-5.1)
[2017-02-19 05:31] LABS: HEMATOCRIT 31.7 % (35.0-45.0); HEMOGLOBIN 9.8 gm/dL (12.0-16.0); MEAN CELL VOLUME 86.5 FL (83-96); MEAN CORPUSCULAR HEMOGLOBIN 26.7 PG (28-34); MEAN CORPUSCULAR HGB CONC 30.8 g/dL (30-36); MEAN PLATELET VOLUME 8.3 FL (6.5-11.5); RED BLOOD COUNT 3.66 X10e (3.90-5.30); RED CELL DISTRIBUTION WIDTH 21.2 % (11.0-15.5); WHITE BLOOD COUNT 16.2 X10e3 (4.0-10.5)
[2017-02-20 06:35] LABS: HEMATOCRIT 31.7 % (35.0-45.0); HEMOGLOBIN 9.7 gm/dL (12.0-16.0); MEAN CELL VOLUME 86.6 FL (83-96); MEAN CORPUSCULAR HEMOGLOBIN 26.5 PG (28-34); MEAN CORPUSCULAR HGB CONC 30.6 g/dL (30-36); RED BLOOD COUNT 3.66 X10e (3.90-5.30); RED CELL DISTRIBUTION WIDTH 21.3 % (11.0-15.5); WHITE BLOOD COUNT 12.4 X10e3 (4.0-10.5)
[2017-02-20 07:48] LABS: BUN/CREATININE RATIO 5.14; CALCIUM SERUM 8.5 mg/dL (8.4-10.2); CREATININE SERUM 3.5 mg/dL (0.6-1.4); GLOM FILT RATE Estimated 14.5 mL/min (>60); POTASSIUM 4.5 mmol/L (3.5-5.1)
[2017-02-21 08:58] LABS: BUN/CREATININE RATIO 4.66; CALCIUM SERUM 8.2 mg/dL (8.4-10.2); GLOM FILT RATE Estimated 17.5 mL/min (>60)
[2017-02-22 08:15] LABS: BUN/CREATININE RATIO 5.64; CALCIUM SERUM 7.9 mg/dL (8.4-10.2); CREATININE SERUM 3.9 mg/dL (0.6-1.4); GLOM FILT RATE Estimated 12.8 mL/min (>60); POTASSIUM 4.2 mmol/L (3.5-5.1)
[2017-02-22 09:04] LABS: HEMOGLOBIN 9.3 gm/dL (12.0-16.0); MEAN PLATELET VOLUME 8.8 FL (6.5-11.5); RED BLOOD COUNT 3.45 X10e (3.90-5.30); RED CELL DISTRIBUTION WIDTH 21.9 % (11.0-15.5); WHITE BLOOD COUNT 20.3 X10e3 (4.0-10.5)
[2017-02-23 06:36] LABS: HEMATOCRIT 29.1 % (35.0-45.0); HEMOGLOBIN 8.9 gm/dL (12.0-16.0); MEAN CELL VOLUME 88.6 FL (83-96); MEAN CORPUSCULAR HGB CONC 30.5 g/dL (30-36); RED BLOOD COUNT 3.29 X10e (3.90-5.30); RED CELL DISTRIBUTION WIDTH 25.5 % (11.0-15.5); WHITE BLOOD COUNT 12.6 X10e3 (4.0-10.5)
[2017-02-23 11:08] LABS: BUN/CREATININE RATIO 5.93; CREATININE SERUM 3.2 mg/dL (0.6-1.4); GLOM FILT RATE Estimated 16.2 mL/min (>60); POTASSIUM 3.7 mmol/L (3.5-5.1)
[2017-02-24 08:06] LABS: HEMATOCRIT 25.5 % (35.0-45.0); HEMOGLOBIN 7.9 gm/dL (12.0-16.0); MEAN CELL VOLUME 86.9 FL (83-96); MEAN CORPUSCULAR HGB CONC 31.1 g/dL (30-36); RED BLOOD COUNT 2.93 X10e (3.90-5.30); RED CELL DISTRIBUTION WIDTH 22.7 % (11.0-15.5); WHITE BLOOD COUNT 15.4 X10e3 (4.0-10.5)
[2017-02-24 08:36] LABS: BUN/CREATININE RATIO 6.42; CREATININE SERUM 4.2 mg/dL (0.6-1.4); GLOM FILT RATE Estimated 11.7 mL/min (>60); POTASSIUM 3.9 mmol/L (3.5-5.1)
== END 2017-02-24 19:18 | DRG 853 ==
LOC: CED 09:35 → CEDOF 16:52 → C5B 23:07 → CEDOF 23:11 → CED 23:11 → C5B 02-13 08:20 → CED 02-13 08:25 → C2A 02-13 08:25 → C5B 02-13 08:25 → CEDOF 02-13 08:25 → C2A 02-17 16:08 → C5B 02-17 16:39 → C2A 02-17 18:28
PROVIDERS: Emergency Medicine; Internal Medicine; Internal Medicine Endocrinology, Diabetes & Metabolism; Internal Medicine Nephrology; Surgery
PROC: 5A1D60Z (ICD-10-PCS; 2017-02-13)
PROC: B24BYZZ Ultrasonography of Heart with Aorta using Other Contrast (ICD-10-PCS; 2017-02-13)
PROC: 0JBL0ZZ Excision of Right Upper Leg Subcutaneous Tissue and Fascia, Open Approach (ICD-10-PCS; 2017-02-14)
PROC: 30233N1 Transfusion of Nonautologous Red Blood Cells into Peripheral Vein, Percutaneous Approach (ICD-10-PCS; 2017-02-15)
PROC: 0JBL0ZZ Excision of Right Upper Leg Subcutaneous Tissue and Fascia, Open Approach (ICD-10-PCS; 2017-02-21)
PROC: 0JBM0ZZ Excision of Left Upper Leg Subcutaneous Tissue and Fascia, Open Approach (ICD-10-PCS; principal; 2017-02-21 12:30)
PROC: 05H533Z Insertion of Infusion Device into Right Subclavian Vein, Percutaneous Approach (ICD-10-PCS; 2017-02-24)
PROC: B546ZZA Ultrasonography of Right Subclavian Vein, Guidance (ICD-10-PCS; 2017-02-24)
DX: A41.1 Sepsis due to other specified staphylococcus (principal); N18.6 End stage renal disease; E43 Unspecified severe protein-calorie malnutrition; L89.152 Pressure ulcer of sacral region, stage 2; A04.7 Enterocolitis due to Clostridium difficile; I12.0 Hypertensive chronic kidney disease with stage 5 chronic kidney disease or end stage renal disease; T68.XXXA Hypothermia, initial encounter; D62 Acute posthemorrhagic anemia; E11.649 Type 2 diabetes mellitus with hypoglycemia without coma; E78.5 Hyperlipidemia, unspecified; Z90.710 Acquired absence of both cervix and uterus; Z79.82 Long term (current) use of aspirin; Z99.2 Dependence on renal dialysis; E83.59 Other disorders of calcium metabolism; M62.3 Immobility syndrome (paraplegic); Z86.73 Personal history of transient ischemic attack (TIA), and cerebral infarction without residual deficits; D50.9 Iron deficiency anemia, unspecified; D63.1 Anemia in chronic kidney disease; F01.50 Vascular dementia, unspecified severity, without behavioral disturbance, psychotic disturbance, mood disturbance, and anxiety; I89.0 Lymphedema, not elsewhere classified
CPT/HCPCS: 36415; 71010; 80048; 80076; 80202; 81003; 82274; 82378; 82553; 82607; 82947; 83036; 83540; 83550; 83605; 84100; 84484; 85014; 85018; 85025; 85027; 85610; 85730; 86850; 86900; 86901; 86923; 87040; 87077; 87186; 87340; 87493; 88304; 88312; 93005; 93306; 96374; 99285; J1644; J2270; J2916; J3010; J3370; P9016; Q4081

== ENCOUNTER 2017-02-28 11:42 | Inpatient (IN) | payer MEDICARE, BC, OTHER ==
--- NOTE | ~2017-02-28 | CR72 ---
[facility] A Service of [facility] RADIOLOGY TEXT RESULTS PATIENT: MELLY RICE LOCATION: [address] : [birth year] UNIT #: [id number] AGE: [address]: Hayden Daniel MD SEX: F ORDER DR: [id number] [facility] [address] [place], [place] [address] [id number] MR#: [id number] Acc #: [id number] NAME: MELLY RICE : 1945 SEX: F STUDY DATE/TIME: 02/28/2017 12:49 UNIT: KIP ROOM: STUDY DESCRIPTION: CR Chest Single View Portable Attending Physician: Bishnu Gallardo M.D. Ordering Physician: Jae Osorio M.D. Primary Care Physician: Benji Becker M.D. MEDICAL IMAGING REPORT This report is preliminary unless electronic signature is present EXAM Portable chest 02/28/2017 COMPARISON STUDIES Comparison 02/12/2017 CLINICAL HISTORY Clinical history is lethargy since 9 a.m. FINDINGS Low lung volumes but otherwise negative. No consolidation or effusion or pneumothorax. Dictated by... Mauro Newman M.D. THIS IS AN ELECTRONICALLY VERIFIED REPORT Mauro Newman M.D. at 03/03/2017 10:57 AM RENEE/anthony TD: 02/28/2017 18:08 JOB #: [id number] MEDICAL IMAGING REPORT Page 1 of 1 COPY
--- NOTE | ~2017-02-28 | HP ---
Unit #: [id number] #: [id number] Patient: MELLY RICE [id number] [address] [place], [place] [address] [id number] I MR#: [id number] NAME: MELLY RICE. ROOM: 54453 Age: 71 Sex: F Admission Date: 02/28/2017 : 1945 Attending Physician: Hayden Daniel M.D. Primary Care Physician: Benji Becker M.D. HISTORY AND PHYSICAL CHIEF COMPLAINT Patient was sent from [facility] for lethargy and bilateral thigh wound. DISCUSSION This is a 71-year-old -[place] female, who has a past medical history of end-stage renal disease on hemodialysis, anemia, dyslipidemia, hypertension, chronic immobility, mild dementia, diabetes, lymph edema. She was admitted here on February 13, 2017, was discharged on February 24, 2017. She was admitted initially in the ER with hypoglycemia at [facility]. She is a [facility] resident, and patient was found to have necrotic wound on right and left thigh. She was admitted and eventually she underwent bilateral right thigh wound consistent with calciphylaxis and stage 3 ulcer and also has a left thigh ulcer. She underwent debridement initially on February 14, 2017. Also, she underwent debridement of right and left wound on February 21, 2017. She had echocardiogram which showed ejection fraction of 55% to 60% and left ventricular hypertrophy. She has also anemia and eventually she was discharged to the [facility] and she was sent back from [facility] today for the evaluation of lethargy. She has a urine culture with UTI, bilateral thigh wound, white count 15,000. Sister is at bedside, wants to keep her here for the thigh wound care and she eventually is being admitted. She is complaining of pain all over, hurting all over. She denies chest pain. She denies nausea, vomiting. Cough is persistent. She has a low-grade fever in the [facility]. PAST MEDICAL HISTORY 1. History of bilateral right thigh wound with calciphylaxis, status post debridement. 2. History of also left thigh, status post debridement on February 21, 2017. 3. History of recent sepsis, secondary to methicillin-sensitive coagulase negative staphylococcus bacteremia. 4. History of end-stage renal disease on hemodialysis. 5. History of anemia, multifactorial including end-stage disease and acute blood loss. 6. History of Clostridium difficile. 7. Hypertension, uncontrolled on recent admission. 8. Chronic immobility. 9. Mild dementia, likely vascular. 10. History of diabetes with recent A1c 5.1. 11. History of lymph edema. 12. Severe protein malnutrition. 13. History of dyslipidemia. PAST SURGICAL HISTORY Unit #: [id number] #: [id number] Patient: MELLY RICE 1. Bilateral hammer toe surgery. 2. Hysterectomy. 3. Tonsillectomy. 4. Richi in her right thigh. 5. Recent debridements on the right thigh and left thigh. ALLERGIES Doxycycline. MEDICATIONS Medication from [facility] is followin. Zofran 4 mg three times a day p.r.n. 2. Bisacodyl 5 mg daily. 3. Dulcolax 10 mg p.r.n. 4. NovoLog Mix 70/30 sliding scale. 5. Levemir 15 units subcutaneous twice daily. 6. Procrit 1000 units with dialysis. 7. Lipitor 20 mg daily. 8. Neurontin 300 mg at bedtime. 9. Amitriptyline 25 mg at bedtime. 10. Desyrel 25 mg q.6 hours. 11. Colace 100 mg twice a day. 12. ProMod 60 mg twice a day. 13. Clonidine 0.2 mg at bedtime. 14. Hydralazine 100 mg twice a day. 15. Cozaar 50 mg twice a day. 16. Hydrocodone 5/325 one tablet q.8 hours p.r.n. 17. Plavix 75 mg daily. 18. Vitamin D 50,000 units daily. 19. Cyanocobalamin 1000 mcg daily. 20. Toprol XL 100 mg daily. 21. MiraLax one pack daily. 22. Lidoderm one patch every Friday. 23. Famotidine 20 mg daily. 24. Aspirin 81 mg daily. 25. Bumex 1 mg twice a day. SOCIAL HISTORY She currently lives in [facility]. She has no history of tobacco abuse, alcohol abuse, any illicit drug use. Resident of [facility]. She is a DNR as per [facility] papers. I also discussed with the sister at bedside. She confirmed the DNR. DNR. REVIEW OF SYSTEMS All review of systems negative except for history of present illness. PHYSICAL EXAMINATION GENERAL: Elderly female lying in the bed comfortably, currently not in any distress. She is alert, awake, oriented x2, not in any distress. VITAL SIGNS: Temperature 98.4, heart rate 108, respiratory rate 16, blood pressure 119/86, oxygen 98% on room air. HEENT: Head is atraumatic, normocephalic. Pupils equal, round, and reactive to light and accommodation. Dry mucous membrane. NECK: Supple. No JVD. No thyromegaly. LUNGS: Clear to auscultation. No rhonchi. No wheezing. HEART: S1, S2. Regular rate and rhythm. ABDOMEN: Soft, nontender, nondistended. Bowel sounds positive. Unit #: [id number] #: [id number] Patient: MELLY RICE EXTREMITIES: Bilateral thighs are dressed. Wound is dressed. NEUROLOGIC: She is alert, awake, oriented. She is moving all extremities. DIAGNOSTIC STUDIES LABORATORY: Laboratory workup today is following: MB 1.1. Troponin less than 0.03, 0.07. UA has a cloudy appearance, positive LE, positive nitrite. Glucose 117. White count 15, hemoglobin 8.2, hematocrit 26.6, platelets 199,000. Sodium 136, potassium 3.1, chloride 93, CO2 of 31, glucose 104, BUN 19, creatinine 2.4, calcium 8.2. INR is 1.1. IMAGING: Chest x-ray shows low volume, otherwise negative. No consolidation. No effusion. No pneumothorax. ASSESSMENT AND PLAN 1. Urinary tract infection: Started patient on IV Rocephin. 2. Hypokalemia with history of end-stage renal disease on dialysis. 3. Bilateral thigh wound led to calciphylaxis, status post debridement of right thigh wound on two places and also debridement of large wound on left thigh. Continue wound care as per wound care nurse evaluation. 4. History of recent sepsis, secondary to methicillin-resistant Staphylococcus aureus coagulase negative staphylococcal bacteremia. 5. End-stage renal disease on hemodialysis. 6. Anemia, multifactorial: End-stage renal disease and blood loss. 7. History of Clostridium difficile colitis in the past. 8. Dyslipidemia. 9. Hypertension. 10. Chronic immobility. 11. Mild dementia. 12. Diabetes with A1c 5.1. While in the hospital, I will hold insulin. Place on sliding scale. Hold Levemir and NovoLog 70/30. 13. History of lymph edema. 14. Severe protein malnutrition. 15. Deep venous thrombosis prophylaxis: Will place the patient on SCDs. Dictated by Reema Oakes TD: 03/01/2017 08:58 JOB #: [id number] HISTORY AND PHYSICAL Page 1 of 1 X X HISTORY AND PHYSICAL
--- NOTE | ~2017-02-28 | EKG ---
PATIENT: MELLY RICE UNIT #: [id number] Ventricular Rate: 95 BPM Atrial Rate: 95 BPM P-R Interval: 128 ms QRS Duration: 90 ms Q-T Interval: 376 ms QTC Calculation(Bezet): 472 ms P [place]: -18 degrees Calculated R [place]: -3 degrees Calculated T [place]: 142 degrees Diagnosis Line: Normal sinus rhythm Diagnosis Line: Possible Inferior infarct (cited on or before Diagnosis Line: 12-FEB-2017) Diagnosis Line: ST and T wave abnormality, consider lateral ischemia Diagnosis Line: Abnormal ECG Diagnosis Line: When compared with ECG of 12-FEB-2017 10:37, Diagnosis Line: Inverted T waves have replaced nonspecific T wave Diagnosis Line: abnormality in Lateral leads Diagnosis Line: Confirmed by LUCERO SHEPPARD MD ([id number]) on 03/05/2017 Diagnosis Line: 2:34:49 PM INTERPRETING MD: SILVER GOMEZ
--- NOTE | ~2017-02-28 | CT71 ---
[facility] A Service of [facility] RADIOLOGY TEXT RESULTS PATIENT: MELLY RICE LOCATION: [facility] : 47 UNIT #: [id number] AGE: [address]: Hayden Daniel MD SEX: F ORDER DR: [id number] [facility] [address] [facility]. [place], [place] [address] [id number] I MR#: [id number] Acc #: [id number] NAME: MELLY RICE. : 1945 SEX: F STUDY DATE/TIME: 02/28/2017 14:10 UNIT: CEDOF ROOM: 59684 STUDY DESCRIPTION: CT Head Wo Contrast Attending Physician: Samantha Domínguez M.D. Ordering Physician: Jae Osorio M.D. Primary Care Physician: Benji Becker M.D. MEDICAL IMAGING REPORT This report is preliminary unless electronic signature is present EXAM Head CT, no contrast, 02/28/2017 TECHNIQUE Axial unenhanced head CT. This CT exam was performed with one or more of the following radiation dose reduction techniques: automatic exposure control, adjustment of mA and/or kV according to patient size, and iterative reconstruction. COMPARISON STUDIES Head CT, 11/29/2016. HISTORY Lethargy and decreased responsiveness since 9 a.m. FINDINGS There is no intracranial hemorrhage. There is no mass or hydrocephalus or extraaxial fluid collection. There is volume loss, but no acute abnormality or interval change since 11/29/2016. IMPRESSION Chronic changes. No acute abnormality. No interval change since 11/29/2016. Dictated by... Mauro Newman M.D. THIS IS AN ELECTRONICALLY VERIFIED REPORT Mauro Newman M.D. at 03/03/2017 10:57 AM TEV/pcl [facility] A Service [facility] RADIOLOGY TEXT RESULTS PATIENT: MELLY RICE LOCATION: [facility] : 47 UNIT #: [id number] AGE: [address]: Hayden Daniel MD SEX: F ORDER DR: TD: 02/28/2017 21:30 JOB #: [id number] MEDICAL IMAGING REPORT Page 1 of 1 COPY
--- NOTE | ~2017-02-28 | DS ---
Unit #: [id number] #: [id number] Patient: MELLY RICE [id number] [address] [address] [id number] Manjit MR#: [id number] NAME: MELLY RICE. ROOM: 216 Age: 71 Sex: F Admission Date: 02/28/2017 : 1945 Discharge Date: 03/02/2017 Attending Physician: Hayden Daniel M.D. Primary Care Physician: Benji Becker M.D. DISCHARGE SUMMARY PLACE OF DISCHARGE Inpatient hospice facility. HISTORY OF PRESENT ILLNESS/HOSPITAL COURSE The patient was sent from the [facility] secondary to increased lethargy as well as increasing wounds found on bilateral thighs. Please see H and P for complete details. Upon initial evaluation and after discussing with the patient's sister who was present at bedside, when the patient first arrived she stated and wished for the patient to have comfort care measures only. She stated that she felt as though the patient was in significant discomfort after dressing changes and had a poor quality of life. The sister and I had a very lengthy discussion in regard to her overall prognosis, quality of life issues moving forward and after review, decision was made for comfort measures. Patient was subsequently transferred to a med/surg floor. Hospice services were consulted. After hospice sees, evaluates, and meets with family members, appropriate arrangements will be made for the patient to be transitioned under the care of hospice. CURRENT CLINICAL DIAGNOSES 1. Chronic bilateral thigh/sacral wounds with numerous debridements in past. 2. End-stage dementia. 3. Nonverbal. 4. Recent admission secondary to methicillin-sensitive Staphylococcus aureus sepsis. 5. History of end-stage renal disease on hemodialysis. 6. Anemia, multifactorial. 7. Chronic immobility, patient bedbound x2 years. 8. Severe protein malnutrition. DISPOSITION Hospice care. Dictated by... Hayden Daniel M.D. PRIYA/dominic TD: 03/04/2017 16:20 Unit #: [id number] #: [id number] Patient: MELLY RICE JOB #: [id number] DISCHARGE SUMMARY Page 1 of 1 X Hayden Daniel MD DISCHARGE SUMMARY
[~2017-02-28 11:42] MED LIST changes: +ACID CONTROLLER20 MG PO; +AMITRIPTYLINE H25 MG PO; +ASPIRIN81 M2 PO; +BUMEX1 MG PO; +CLOPIDOGREL75 MG PO; +CORRECTOL5 M2 PO; +DESYREL50 MG PO; +DOC-Q-LACE100 MG PO; +DULCOLAX10 MG PR; +ENEMEEZ PLUS MIN5 ML PR; +GABAPENTIN300 M2 PO; +HYDROCODON-ACE1 EAC7 PO; +LEVEMIR SUBQ; +LIDOCAINE1 EACH TOP; +LIPITOR20 MG PO; +LOSARTAN POTASS50 MG PO; +METOPROLOL SUC100 MG PO; +MIRALAX119 GM PO; +NOVOLOG100 UNITS/; +POTASSIUM CHLO20 ME1 PO; +PROCRIT2000 UNIT/; +PROMOD946 ML PO; +VIT B-12 PO; +VITAMIN D35000 UNI1 PO; +ZOFRAN ODT4 M1 PO
[2017-02-28 13:47] LABS: BASOPHIL% 0.3 % (0-2.5); EOSINOPHIL% 0.1 % (0.0-7.0); HEMATOCRIT 26.6 % (35.0-45.0); HEMOGLOBIN 8.2 gm/dL (12.0-16.0); LYMPHOCYTE% 6.6 % (17.0-45.0); MEAN CELL VOLUME 86.6 FL (83-96); MEAN CORPUSCULAR HEMOGLOBIN 26.6 PG (28-34); MEAN CORPUSCULAR HGB CONC 30.8 g/dL (30-36); MEAN PLATELET VOLUME 8.7 FL (6.5-11.5); MONOCYTE# 0.9 X10e3 (0-1.0); NEUTROPHIL# 13.6 X10e3 (1.5-7.1); PLATELET COUNT 199 X10e3 (140-420); RED BLOOD COUNT 3.08 X10e (3.90-5.30); RED CELL DISTRIBUTION WIDTH 23.6 % (11.0-15.5); WHITE BLOOD COUNT 15.6 X10e3 (4.0-10.5)
[2017-02-28 13:50] LABS: DIFF IND YES
[2017-02-28 13:56] LABS: INR 1.2; PARTIAL THROMBOPLASTIN TIME 27.1 SECONDS (23.5-31.3); PROTHROMBIN TIME (PATIENT) 12.8 SECONDS (10.0-11.7)
[2017-02-28 14:15] LABS: ALBUMIN SERUM 1.7 g/dL (3.5-5.0); BILIRUBIN, DIRECT 0.1 mg/dL (0.0-0.2); BILIRUBIN,INDIRECT 0.8 mg/dL (0.0-0.9); BILIRUBIN,TOTAL 0.9 mg/dL (0.2-2.0); BUN/CREATININE RATIO 7.91; CALCIUM SERUM 8.2 mg/dL (8.4-10.2); CREATININE SERUM 2.4 mg/dL (0.6-1.4); GLOM FILT RATE Estimated 22.9 mL/min (>60); PROTEIN TOTAL SERUM 6.1 g/dL (6.0-8.3)
[2017-02-28 14:17] LABS: ANISOCYTOSIS MOD; HYPOCHROMIA SL; PLATELET ESTIMATE NORMAL (NORMAL); POIKILOCYTOSIS MOD; POTASSIUM 3.1 mmol/L (3.5-5.1); RBC NORMAL YES
[2017-02-28 14:18] LABS: TARGET CELLS MOD
[2017-02-28 14:19] LABS: POLYCHROMASIA SL
[2017-02-28 16:25] LABS: URINE SOURCE CLEAN CATCH
[2017-02-28 16:39] LABS: URINE APPEARANCE CLOUDY; URINE BLOOD NEG (NEG); URINE COLOR BROWN; URINE GLUCOSE NORM (NEG); URINE KETONE NEG (NEG); URINE LEUKOCYTE ESTERASE 1+ (NEG); URINE NITRATE POS (NEG); URINE PROTEIN 1+ (NEG); URINE SPECIFIC GRAVITY 1.015 (1.003-1.035); URINE UROBILINOGEN NORM (NEG)
[2017-02-28 16:40] LABS: URINE BILIRUBIN NEG (NEG)
[2017-02-28 16:52] LABS: CULTURE INDICATED? YES; URINE BACTERIA AUWI 1+ (NEGATIVE); URINE SQUAMOUS EPITHELIAL CELL FEW /[HPF]
[2017-02-28 17:47] LABS: %MB 5.9 % (0.0-4.0); MB 4.3 ng/ml
[2017-02-28] MEDS ORDERED: VITAMIN D35000 UNI1 PO (18:00)
[2017-02-28] MEDS ORDERED: CLOPIDOGREL75 MG PO (18:00)
[2017-02-28] MEDS ORDERED: HYDROCODON-ACE1 EAC7 PO (18:00)
[2017-02-28] MEDS ORDERED: MIRALAX17 GM PO (18:01)
[2017-02-28] MEDS ORDERED: TOPROL XL100 MG PO (18:01)
[2017-02-28] MEDS ORDERED: CYANOCOBALAMI100 MCG PO (18:01)
[2017-02-28] MEDS ORDERED: ASPIRIN81 M2 PO (18:02)
[2017-02-28] MEDS ORDERED: LIDOCAINE1 EACH TOP (18:02)
[2017-02-28] MEDS ORDERED: ACID CONTROLLER20 MG PO (18:02)
[2017-02-28] MEDS ORDERED: DOCUSATE SODIU100 MG PO (18:03)
[2017-02-28] MEDS ORDERED: BUMEX1 MG PO (18:03)
[2017-02-28] MEDS ORDERED: PROMOD946 ML PO (18:04)
[2017-02-28] MEDS ORDERED: LIPITOR20 MG PO (18:07)
[2017-02-28] MEDS ORDERED: CLONIDINE PO (18:07)
[2017-02-28] MEDS ORDERED: HYDRALAZINE HC100 MG PO (18:07)
[2017-02-28] MEDS ORDERED: COZAAR PO (18:07)
[2017-02-28] MEDS ORDERED: PROCRIT2000 UNIT/ (18:07)
[2017-02-28] MEDS ORDERED: AMITRIPTYLINE H25 MG PO (18:08)
[2017-02-28] MEDS ORDERED: DESYREL50 MG PO (18:08)
[2017-02-28] MEDS ORDERED: NEURONTIN300 MG PO (18:08)
[2017-02-28] MEDS ORDERED: ZOFRAN ODT4 M1 PO (18:09)
[2017-02-28] MEDS ORDERED: BISA-LAX5 MG PO (18:09)
[2017-02-28] MEDS ORDERED: DULCOLAX10 MG PR (18:10)
[2017-02-28] MEDS ORDERED: NOVOLOG MI100 UNIT/1 (18:11)
[2017-02-28] MEDS ORDERED: LEVEMIR FL100 UNIT/1 SUBQ (18:12)
[2017-02-28 18:42] LABS: %MB 1.8 % (0.0-4.0); MB 1.1 ng/ml
== END 2017-03-03 17:49 | DRG 689 ==
LOC: CED 11:42 → C2A 20:33 → CEDOF 20:33 → CED 20:53 → CEDOF 20:53 → C5C 03-01 09:35 → CEDOF 03-01 09:35 → C2A 03-02 06:33
PROVIDERS: Emergency Medicine
DX: N39.0 Urinary tract infection, site not specified (principal); L89.893 Pressure ulcer of other site, stage 3; E43 Unspecified severe protein-calorie malnutrition; N18.6 End stage renal disease; I12.0 Hypertensive chronic kidney disease with stage 5 chronic kidney disease or end stage renal disease; E83.59 Other disorders of calcium metabolism; Z99.2 Dependence on renal dialysis; D63.1 Anemia in chronic kidney disease; M62.3 Immobility syndrome (paraplegic); F01.50 Vascular dementia, unspecified severity, without behavioral disturbance, psychotic disturbance, mood disturbance, and anxiety; E11.22 Type 2 diabetes mellitus with diabetic chronic kidney disease; Z90.710 Acquired absence of both cervix and uterus; Z79.4 Long term (current) use of insulin; Z79.82 Long term (current) use of aspirin; E87.6 Hypokalemia; D50.0 Iron deficiency anemia secondary to blood loss (chronic); E78.5 Hyperlipidemia, unspecified; Z86.14 Personal history of Methicillin resistant Staphylococcus aureus infection; Z66 Do not resuscitate; Z51.5 Encounter for palliative care
CPT/HCPCS: 36415; 51702; 70450; 71010; 80048; 80076; 81003; 82550; 82553; 82947; 84484; 85025; 85610; 85730; 87070; 87077; 87086; 87186; 87205; 93005; 99285; J0696; J2060; J2270; J2405